=== PATIENT | female | born 1930 | race Caucasian/White ===

== ENCOUNTER 2018-06-26 11:23 | Observation (INO) ==
--- NOTE | 2018-06-26 12:17 | Emergency Department Note ---
Disposition Clinical Impression: Left bundle branch block (LBBB) on electrocardiogram CHF exacerbation Qualifiers: Heart failure type: combined systolic and diastolic Qualified Code(s): I50.43 - Acute on chronic combined systolic (congestive) and diastolic (congestive) heart failure Disposition: Admitted As Inpatient Condition: Fair Time of Disposition: 16:33 General Adult HPI - General Chief complaint: ED Abdominal Pain Stated complaint: Abdominal Pain Time Seen by Provider: 06/26/18 11:30 Source: patient, family, EMS Limitations: no limitations Nursing Notes Reviewed: Yes Vital Signs Reviewed: Yes - History of Present Illness HPI Narrative: Patient is an 87-year-old female presenting for lower extrude a swelling as well as nausea. Patient has an history of CHF, diabetes mellitus type 2. The patient has had progressive shortness of breath for the past 2 weeks, diagnosed with a pneumonia approximately one week ago, had been placed on antibiotics at that time as well as she believes a steroid without change of symptoms. She is also had a cough with little production, no fevers or chills at home. She states no change in symptoms following antibiotic use. States that her symptoms are worse when laying flat. No exertional symptoms. Patient also states she has had progressive lower extremity swelling. Patient denies chest pain. Starting 4 days ago, patient also started to develop nausea with mid abdominal pain described as a intermittent pain worse also when lying flat. No vomiting. She does have constant diarrhea, however is on metformin and this is unchanged. No hematochezia or melena. No fevers or chills. Patient has had workup approximately one week ago with elevated BNP, he was supposed to read evaluate this this week, however this has not been done. Patient is a poor historian for medications as well as medical history, her family is at bedside, and they also are unaware of what medicine she is taking at home. Pain Scale: 0 - Related Data Home Medications Medication Instructions Recorded Confirmed ALPRAZolam [Xanax 0.25 MG Tablet] 0.125 mg PO BID 06/26/18 06/26/18 Acetaminophen [Tylenol] 650 mg PO Q4H PRN 06/26/18 06/26/18 Allopurinol [Zyloprim 100 MG] 200 mg PO DAILY PRN 06/26/18 06/26/18 Aspirin [Adult Aspirin Regimen] 81 mg PO DAILY 06/26/18 06/26/18 Calcium Carbonate/Vitamin D3 2 tab PO DAILY 06/26/18 06/26/18 [Calcium 600-Vit D3 200 Tablet] Cholecalciferol (Vitamin D3) 1,000 unit PO DAILY 06/26/18 06/26/18 [Vitamin D] Escitalopram [Lexapro] 10 mg PO DAILY 06/26/18 06/26/18 Ipratropium/Albuterol Sulfate 3 ml IH Q6H PRN 06/26/18 06/26/18 [Iprat-Albut 0.5-3(2.5) mg/3 ml] Levothyroxine Sodium [Euthyrox] 88 mcg PO DAILY 06/26/18 06/26/18 Mag Hydrox/Aluminum Hyd/Simeth 15 ml PO Q4H PRN 06/26/18 06/26/18 [Gnp Antacid Liquid] Melatonin [Melatin] 3 mg PO HS 06/26/18 06/26/18 Meloxicam [Mobic] 7.5 mg PO Q12H PRN 06/26/18 06/26/18 Menthol [Biofreeze] 1 appl TP Q8H PRN 06/26/18 06/26/18 Menthol/Zinc Oxide [Calmoseptine 1 appl TP PRN PRN 06/26/18 06/26/18 Ointment Packet] Polyethylene Glycol 3350 17 gm PO PRN PRN 06/26/18 06/26/18 [Natura-Lax] Potassium Gluconate 80 mg PO DAILY 06/26/18 06/26/18 RX: Glimepiride [Amaryl] 8 mg PO DAILY 06/26/18 06/26/18 RX: Loratadine [Claritin] 10 mg PO DAILY 06/26/18 06/26/18 RX: Metformin HCl 1,000 mg PO BID 06/26/18 06/26/18 RX: Non-Formulary Medication 10 ml PO Q4H PRN 06/26/18 06/26/18 RX: Spironolactone 12.5 mg PO DAILY 06/26/18 06/26/18 RX: Trazodone HCl 50 mg PO Q22H PRN 06/26/18 06/26/18 Saliva Stimulant [Biotene 15 ml PO PRN PRN MDD 5XD 06/26/18 06/26/18 Moisturizing Rinse] Allergies Allergy/AdvReac Type Severity Reaction Status Date / Time azithromycin Allergy See Verified 06/26/18 11:31 Comments Sulfa (Sulfonamide Allergy See Verified 06/26/18 11:31 Antibiotics) Comments Review of Systems: In addition to that documented in the HPI above, the additional ROS was obtained: General: Denies fever. Denies chills. Denies weight loss. Denies behavioral change. Eyes: Denies visual changes. ENT: Denies nasal congestion. Denies sore throat. Denies hearing change. Cardio: Denies chest pain. Denies palpitations. Respiratory: Confirms cough. Confirms shortness of breath. Denies wheezing. GI: Confirms nausea, Denies vomiting, and confirms diarrhea. Denies hematochezia denies melena. Confirms abdominal pain. : Denies dysuria, hematuria, or urinary retention MSK: Denies back pain. Denies joint swelling. Neuro: Denies slurred speech. Denies numbness or tingling. Denies focal weakness. Denies headache. Denies loss of consciousness. Psych: Denies mood changes. All systems ED: reviewed and negative except as stated. Review of Systems: As Per HPI Past Medical History - Past Medical History Medical history: Reports: diabetes, hyperlipidemia, thyroid disease, other Psychiatric history: Reports: anxiety, depression - Social History Smoking Status: Never smoker Smokeless Tobacco Status: No Alcohol use: Reports: none Drug use: Reports: none Physical Exam - General Limitations: no limitations General appearance: alert - Head Head exam: atraumatic, normocephalic, normal inspection - Eye Eye exam: Present: normal appearance, PERRL, EOMI - ENT ENT exam: normal exam, normal oropharynx, mucous membranes moist - Neck Neck exam: Present: normal inspection, full ROM, trachea midline - Chest Chest inspection: Present: normal inspection, symmetric chest wall rise - Respiratory Respiratory exam: Present: prolonged expiratory phase, other (Decreased breath sounds throughout, with a few crackles to the left lower base) - Cardiovascular Cardiovascular exam: Present: normal rhythm, tachycardia - Abdominal Exam Abdominal exam: Present: soft, tenderness (Minimal to moderate tenderness to moderate palpation to the midepigastric region, without guarding or rebound). Absent: distention, guarding, rebound, rigidity - Extremities Exam Extremities exam: Present: normal inspection, full ROM, pedal edema (2+ pitting edema to the bilateral lower extremities, up to the knees, with SULY hose in pl griselda). Absent: tenderness - Expanded Lower Extremity Exam Neurovascular/Tendon exam: Absent: motor deficit, sensory deficit, tendon deficit - Back Exam Back exam: Present: normal inspection, full ROM. Absent: tenderness - Neurological Exam Neurological exam: Present: alert, oriented X3 - Psychiatric Psychiatric exam: Present: normal affect, normal mood - Skin Skin exam: Present: warm, dry, intact, normal color Course Vital Signs Temperature 98.4 F 06/26/18 11:31 Pulse Rate 111 06/26/18 11:31 Respiratory Rate 20 06/26/18 11:31 Blood Pressure 145/86 06/26/18 11:31 O2 Sat by Pulse Oximetry 95 06/26/18 11:31 Temperature 98.4 F 06/26/18 11:31 Pulse Rate 111 06/26/18 11:31 Respiratory Rate 20 06/26/18 11:31 Blood Pressure 145/86 06/26/18 11:31 O2 Sat by Pulse Oximetry 95 06/26/18 11:31 Oxygen Delivery Oxygen Delivery Room Air Medical Decision Making - [facility] Narrative Medical decision making narrative: Patient is an 87-year-old female presenting with shortness of breath and lower leg swelling. Patient also complaint he has some nausea. On arrival, patient is in no acute distress satting at 96% on room air, she does have some crackles to the left base with overall decreased breath sounds. She has some midepigastric abdominal pain. Lower leg swelling with 2+ pitting edema. CBC and BMP are relatively unremarkable. Troponin is within normal limits. BNP is significantly elevated as well as chest x-ray showing some pulmonary edema. This is suggestive of fluid overload given her clinical concerns with shortness of breath as well as lower leg swelling. This suggests the patient is an acute CHF. CT of the abdomen and pelvis was performed which shows concern for cystitis, patient started with Rocephin. Urinalysis was performed which shows no sign of infection, however she has been sent for urine culture. CT of the abdomen and pelvis also showed bilateral pleural effusion, with concern for atelectasis versus pneumonia. Patient was given Lasix 40 mg IV. Patient is remained stable here in the ER. EKG was performed which shows sinus tachycardia with suggestion of new left bundle branch block. No old EKG was able to be obtained. This suggested this is a new left bundle branch block, however the patient is without chest pain. We will not anticoagulated at this point in time as patient is stable, continues denies chest pain with negative troponin. Did discuss these findings with the patient as well as her family in the room, patient be admitted this point in time. Patient agrees with disposition. - Medical Records Medical records reviewed: Yes I reviewed the patient's medical records. - Lab Data Lab results reviewed: Yes I reviewed the patient's lab results. Result diagrams: 06/26/18 12:07 06/26/18 12:07 Lab Results 06/26/18 06/26/18 06/26/18 Range/Units 12:07 12:07 12:07 WBC 4.6 (4.3-11.1) K/mcL RBC 4.19 (3.82-4.97) M/mcL Hgb 11.6 (11.5-15.4) g/dL Hct 35.8 (35.3-44.9) % MCV 85.4 (83.0-100.0) fL MCH 27.7 L (28.0-33.3) pg MCHC 32.4 (31.6-35.5) g/dL RDW 14.0 (11.5-14.5) % Plt Count 201 (140-400) K/mcL MPV 10.5 (9.4-12.4) fL Immature Gran % 0.2 (0-4) % Seg Neutrophils % 71.9 % Lymphocytes % 18.7 % Monocytes % 8.3 % Eosinophils % 0.7 % Basophils % 0.2 % Neutrophils # 3.3 (1.6-8.9) K/mcL Lymphocytes # 0.9 (0.6-4.6) K/mcL Monocytes # 0.4 (0.0-1.3) K/mcL Eosinophils # 0.0 (0.0-0.6) K/mcL Basophils # 0.0 (0.0-0.2) K/mcL PT 12.9 H (9.4-12.1) Seconds INR 1.1 Sodium 130 L (136-145) mEq/L Potassium 4.4 (3.5-5.1) mEq/L Chloride 98 (98-107) mEq/L Carbon Dioxide 23 (23-29) mEq/L BUN 16 (8-23) mg/dL Creatinine 0.96 (0.60-1.20) mg/dL Est GFR ( Amer) > 60 (> 60) Est GFR (Non-Af Amer) 55 L (> 60) BUN/Creatinine Ratio 17 (6-26) Glucose 288 H (70-105) mg/dL Calculated Osmolality 282 (280-300) Lactic Acid (0.5-2.2) mmol/L Calcium 10.0 (8.6-10.3) mg/dL Total Bilirubin 0.6 (0.3-1.0) mg/dL Direct Bilirubin 0.1 (0.0-0.2) mg/dL Indirect Bilirubin 0.5 (0.0-1.2) mg/dL AST 24 (13-39) Units/L ALT 25 (7-52) Units/L Alkaline Phosphatase 78 (34-104) Units/L Troponin I 0.03 (< 0.04) ng/mL B-Natriuretic Peptide (Less than 100) pg/mL Serum Total Protein 6.8 (6.4-8.9) g/dL Albumin 3.8 (3.5-5.7) g/dL Globulin 3.0 (2.4-3.5) g/dL Albumin/Globulin Ratio 1.3 (1.1-2.2) Lipase 29 (11-82) Units/L Urine Color (Yellow) Urine Clarity (Clear) Urine pH (5.0-8.0) pH Units Ur Specific Thomas (1.010-1.025) Urine Protein (Neg-Trace) mg/dL Urine Glucose (UA) (Normal) mg/dL Urine Ketones (Negative) mg/dL Urine Blood (Negative) Urine Nitrite (Negative) Urine Bilirubin (Negative) Urine Urobilinogen (Normal) mg/dL Ur Leukocyte Esterase (Negative) Urine Microscopic RBC (0-3) per hpf Urine Microscopic WBC (0-3) per hpf Ur Squamous Epith Cells (None-Few) per lpf Urine Bacteria (None-Few) per hpf Hyaline Casts (None-Few) per lpf 06/26/18 06/26/18 06/26/18 Range/Units 12:07 12:07 14:20 WBC (4.3-11.1) K/mcL RBC (3.82-4.97) M/mcL Hgb (11.5-15.4) g/dL Hct (35.3-44.9) % MCV (83.0-100.0) fL MCH (28.0-33.3) pg MCHC (31.6-35.5) g/dL RDW (11.5-14.5) % Plt Count (140-400) K/mcL MPV (9.4-12.4) fL Immature Gran % (0-4) % Seg Neutrophils % % Lymphocytes % % Monocytes % % Eosinophils % % Basophils % % Neutrophils # (1.6-8.9) K/mcL Lymphocytes # (0.6-4.6) K/mcL Monocytes # (0.0-1.3) K/mcL Eosinophils # (0.0-0.6) K/mcL Basophils # (0.0-0.2) K/mcL PT (9.4-12.1) Seconds INR Sodium (136-145) mEq/L Potassium (3.5-5.1) mEq/L Chloride (98-107) mEq/L Carbon Dioxide (23-29) mEq/L BUN (8-23) mg/dL Creatinine (0.60-1.20) mg/dL Est GFR ( Amer) (> 60) Est GFR (Non-Af Amer) (> 60) BUN/Creatinine Ratio (6-26) Glucose (70-105) mg/dL Calculated Osmolality (280-300) Lactic Acid 1.7 (0.5-2.2) mmol/L Calcium (8.6-10.3) mg/dL Total Bilirubin (0.3-1.0) mg/dL Direct Bilirubin (0.0-0.2) mg/dL Indirect Bilirubin (0.0-1.2) mg/dL AST (13-39) Units/L ALT (7-52) Units/L Alkaline Phosphatase (34-104) Units/L Troponin I (< 0.04) ng/mL B-Natriuretic Peptide 2996 H (Less than 100) pg/mL Serum Total Protein (6.4-8.9) g/dL Albumin (3.5-5.7) g/dL Globulin (2.4-3.5) g/dL Albumin/Globulin Ratio (1.1-2.2) Lipase (11-82) Units/L Urine Color Dark Yellow (Yellow) Urine Clarity Cloudy A (Clear) Urine pH 5.5 (5.0-8.0) pH Units Ur Specific Thomas > 1.030 H (1.010-1.025) Urine Protein >=300 H (Neg-Trace) mg/dL Urine Glucose (UA) 500 H (Normal) mg/dL Urine Ketones 15 H (Negative) mg/dL Urine Blood Trace H (Negative) Urine Nitrite Negative (Negative) Urine Bilirubin Negative (Negative) Urine Urobilinogen Normal (Normal) mg/dL Ur Leukocyte Esterase Negative (Negative) Urine Microscopic RBC 0-3 (0-3) per hpf Urine Microscopic WBC 5-15 H (0-3) per hpf Ur Squamous Epith Cells Many H (None-Few) per lpf Urine Bacteria Many H (None-Few) per hpf Hyaline Casts Few (None-Few) per lpf - Radiology Data Radiology results reviewed: Yes I reviewed the patient's radiology results. Chest X-Ray 06/26/18 12:00 IMPRESSION: 1. Trace bilateral pleural effusions, right greater than left. Mild bibasilar atelectasis. Mild pulmonary vascular congestion. Mild cardiomegaly. Findings favored to represent mild CHF related changes. 2. Moderate to severe elevation of the right hemidiaphragm. D/ / 06/26/2018 13:47:04 Waldo Chin MD / lorraine Interpreting Provider: Waldo Chin MD Abdomen/Pelvis CT 06/26/18 15:20 IMPRESSION: Moderate right pleural effusion. Small left pleural effusion. Associated bibasilar lung opacities may represent atelectasis versus pneumonia. Bladder wall thickening with a small amount of air and surrounding inflammatory changes likely related to infection. No bowel obstruction. Complex right adrenal mass. Compare with any prior outside studies. D/ / 06/26/2018 16:14:55 Agustín Clark MD / lorraine Interpreting Provider: Agustín Clark MD - EKG Data EKG #1 EKG attestation: Yes I reviewed and interpreted this EKG. EKG results narrative: EKG performed at 1147 with ventricular rate of 110, regular rhythm, left axis deviation with left bundle branch block, without significant ST elevation, T-wa ve inversion in lead 1, aVL. No old EKG for comparison. Rogers - Rogers Situation: Demographics, MOA Background: Presenting Complaint, Relevant PMH, Meds, & Allergies Assessment: Vital Signs, Course and respsone to treatment, Exam Concerns, Patient/Family Expectation, Pertinant Lab Results, Outstanding Labs Recommendation: Barrier(s) to disposition, Recommendation based on pending studies, treatments, or consults Rogers Report Given to: Dr. Jose Mccloud Repor Time: 16:45 (accepted) Attestation Statement - Attestation Attestation: Resident Attestation: I examined this patient and my medical decision making was reviewed with the Resident Physician. I agree with the documented findings, disposition and treatment plan as described except to the extent set forth below. We independently had [id number] contact with the patient. Overall patient presenting to the emergency department for evaluation of multiple complaints and convoluting cough, shortness of breath, abdominal pain. Patient underwent further evaluation with blood work as well as x-ray and CT. Patient's blood work concerning for elevated BNP and congestive heart failure. Patient states no specific significant history. It is always been assumed. Patient will require further evaluation for this. Patient also went under CT scan imaging to rule out abdominal pathology. Her abdomen was soft with just mild generalized tenderness. No rebound or guarding. No specific findings. Patient will be admitted for further evaluation. Patient was also found to have a left bundle branch block. No previous EKGs for comparison. Troponin negative. Patient did have Rales on exam but was not in respiratory distress. CT scan did show fluid that was not initially seen on x-ray consistent with pleural effusion and congestive heart failure.
[2018-06-26 12:18] LABS: Basophils % 0.2 %; Eosinophils % 0.7 %; Hematocrit 35.8 % (35.3-44.9); Hemoglobin 11.6 g/dL (11.5-15.4); Immature Granulocytes % 0.2 % (0-4); Lymphocytes # 0.9 K/mcL (0.6-4.6); Lymphocytes % 18.7 %; Mean Corpuscular HGB Conc 32.4 g/dL (31.6-35.5); Mean Corpuscular Hemoglobin 27.7 pg (28.0-33.3); Mean Corpuscular Volume 85.4 fL (83.0-100.0); Mean Platelet Volume 10.5 fL (9.4-12.4); Monocytes # 0.4 K/mcL (0.0-1.3); Monocytes % 8.3 %; Neutrophils # 3.3 K/mcL (1.6-8.9); Platelet Count 201 K/mcL (140-400); Red Blood Count 4.19 M/mcL (3.82-4.97); Segmented Neutrophils % 71.9 %
[2018-06-26 12:32] LABS: INR 1.1; Prothrombin Time 12.9 Seconds (9.4-12.1)
[2018-06-26 12:44] LABS: Alanine Aminotransferase 25 Units/L (7-52); Albumin 3.8 g/dL (3.5-5.7); Albumin/Globulin Ratio 1.3 (1.1-2.2); Alkaline Phosphatase 78 Units/L (34-104); Aspartate Amino Transferase 24 Units/L (13-39); BUN/Creatinine Ratio 17 (6-26); Bilirubin,Direct 0.1 mg/dL (0.0-0.2); Bilirubin,Indirect 0.5 mg/dL (0.0-1.2); Bilirubin,Total 0.6 mg/dL (0.3-1.0); Blood Urea Nitrogen 16 mg/dL (8-23); Carbon Dioxide 23 mEq/L (23-29); Chloride 98 mEq/L (98-107); Glucose 288 mg/dL (70-105); Lipase 29 Units/L (11-82); Osmolality,Calculated 282 (280-300); Potassium 4.4 mEq/L (3.5-5.1); Sodium 130 mEq/L (136-145); Total Protein 6.8 g/dL (6.4-8.9); Troponin I 0.03 ng/mL (< 0.04); eGFR For Non-African Americans 55 (> 60)
[2018-06-26] MEDS ORDERED: Furosemide 40 MG/4 ML VIAL IVP ONE (13:48)
[2018-06-26] MEDS ORDERED: Isovue-370 500 ML BOTTLE IVP ONE (13:55)
[2018-06-26 14:37] LABS: Bilirubin,Urine Negative (Negative); Blood,Urine Trace (Negative); Clarity,Urine Cloudy (Clear); Color,Urine Dark Yellow (Yellow); Glucose,Urine (UA) 500 mg/dL (Normal); Ketones,Urine 15 mg/dL (Negative); Leukocyte Esterase,Urine Negative (Negative); Nitrite,Urine Negative (Negative); PH,Urine 5.5 pH Units (5.0-8.0); Protein,Urine >=300 mg/dL (Neg-Trace); Specific Gravity,Urine > 1.030 (1.010-1.025); Urobilinogen,Urine Normal (Normal)
[2018-06-26 14:39] LABS: Bacteria,Urine Many per hpf (None-Few); Hyaline Casts,Urine Few per lpf (None-Few); Squamous Epithelial Cell,Urine Many per lpf (None-Few)
[2018-06-26 15:00] LABS: RBC,Urine 0-3 per hpf (0-3)
[2018-06-26] MEDS ORDERED: cefTRIAXone 1,000 MG in Water for inj. (sterile) 20 ML 10 ML IVP ONE (16:22)
[2018-06-26] MEDS ORDERED: Naloxone 0.4 MG/ML INJ IVP PRN (16:48)
[2018-06-26] MEDS ORDERED: D5% in Water 1,000 ML IVC PRN (16:51)
[2018-06-26] MEDS ORDERED: *HR* Dextrose 50 % in Water (Syg) 50 ML SYRINGE IVP PRN (16:51)
[2018-06-26] MEDS ORDERED: Dextrose Gel 15 GM/37.5 ML TUBE PO PRN ×2 (16:51)
[2018-06-26 17:20] LABS: Chol/HDL Ratio 3.2 (0-4.9); Cholesterol 148 mg/dL (< 200); HDL Cholesterol 46 mg/dL (40-59); LDL Cholesterol,Calculated 81 mg/dL (0-99); Triglycerides 105 mg/dL (< 150)
--- NOTE | 2018-06-26 17:25 | Internal Med History&Physical ---
Date of Encounter: 06/26/18 Time of Encounter: 17:18 Internal Medicine - H&P: HPI Chief complaint: shortness of breath and abdominal discomfort Admitted From: Home Plans for Post Hospital Care: Home History of present illness: Ms. Hernandez is a 87 year old female PMH of DM, HTN and hypothyroidism. Patient presented to the ED due to shortness of breath. Patient reports she has been feeling short of breath for the past month but since she has feeling getting short of breath with minimal exertion. She also reports increase abdominal girth, and edema of the lower extremities b/l. Stated that her clothing feel tighter for about a month now. Report she has been sleeping on a chair in a sitting position because she has not been able to sleep flat due to shortness of breath for about 1 month now. Denies chest pain, nausea or vomiting. But reports generalized abdominal discomfort of one day duration associated with poor PO intake. Reports she has loose stool/diarrhea, about 2-3 BM a day, but stated she is taking a pill to help her move her bowel. Past Med Surg Social Fam HX - Past Medical History Medical history: diabetes, hyperlipidemia, thyroid disease, other Psychiatric history: anxiety, depression - Social History Smoking Status: Never smoker Smokeless Tobacco Status: No Alcohol use: none Drug use: none Internal Medicine - H&P: Meds ALPRAZolam [Xanax 0.25 MG Tablet] 0.125 mg PO BID 06/26/18 [History] Acetaminophen [Tylenol] 650 mg PO Q4H PRN 06/26/18 [History] Allopurinol [Zyloprim 100 MG] 200 mg PO DAILY PRN 06/26/18 [History] Aspirin [Adult Aspirin Regimen] 81 mg PO DAILY 06/26/18 [History] Calcium Carbonate/Vitamin D3 [Calcium 600-Vit D3 200 Tablet] 2 tab PO DAILY 06/26/18 [History] Cholecalciferol (Vitamin D3) [Vitamin D] 1,000 unit PO DAILY 06/26/18 [History] Escitalopram [Lexapro] 10 mg PO DAILY 06/26/18 [History] Glimepiride [Amaryl] 8 mg PO DAILY 06/26/18 [History] Ipratropium/Albuterol Sulfate [Iprat-Albut 0.5-3(2.5) mg/3 ml] 3 ml IH Q6H PRN 06/26/18 [History] Levothyroxine Sodium [Euthyrox] 88 mcg PO DAILY 06/26/18 [History] Loratadine [Claritin] 10 mg PO DAILY 06/26/18 [History] Mag Hydrox/Aluminum Hyd/Simeth [Gnp Antacid Liquid] 15 ml PO Q4H PRN 06/26/18 [History] Melatonin [Melatin] 3 mg PO HS 06/26/18 [History] Meloxicam [Mobic] 7.5 mg PO Q12H PRN 06/26/18 [History] Menthol [Biofreeze] 1 appl TP Q8H PRN 06/26/18 [History] Menthol/Zinc Oxide [Calmoseptine Ointment Packet] 1 appl TP PRN PRN 06/26/18 [History] Metformin HCl 1,000 mg PO BID 06/26/18 [History] Non-Formulary Medication 10 ml PO Q4H PRN 06/26/18 [History] Polyethylene Glycol 3350 [Natura-Lax] 17 gm PO PRN PRN 06/26/18 [History] Potassium Gluconate 80 mg PO DAILY 06/26/18 [History] Saliva Stimulant [Biotene Moisturizing Rinse] 15 ml PO PRN PRN MDD 5XD 06/26/18 [History] Spironolactone 12.5 mg PO DAILY 06/26/18 [History] Trazodone HCl 50 mg PO Q22H PRN 06/26/18 [History] Allergy/AdvReac Type Severity Reaction Status Date / Time azithromycin Allergy See Verified 06/26/18 11:31 Comments Sulfa (Sulfonamide Allergy See Verified 06/26/18 11:31 Antibiotics) Comments All Systems PM: A 10-system review of systems was performed and is negative for pertinent findings except as documented above in the HPI. - Constitutional Constitutional: weakness, no chills, no fever(s), no lethargy - EENT Nose, mouth and throat: no dry mouth - Cardiovascular Cardiovascular ROS IM: dyspnea, dyspnea on exertion, edema, orthopnea, paroxysmal nocturnal dyspnea, no chest pain, no diaphoresis, no irregular heart rhythm, no lightheadedness, no palpitations, no syncope - Respiratory Respiratory: no cough, no dyspnea on exertion, no wheezing, no chest congestion, no change in phlegm color - Gastrointestinal Gastrointestinal: abdominal pain, loose stools, no diarrhea, no nausea, no vomiting - Genitourinary Genitourinary: no hematuria, no nocturia - Musculoskeletal Musculoskeletal ROS IM: no arthralgias, no muscle weakness - Integumentary Integumentary IM: no erythema - Neurological Neurological ROS: no headache(s) - Psychiatric Psychiatric: no anxiety, no confusion, no irritability - Endocrine Endocrine IM: no polydipsia, no polyphagia, no polyuria - Hematologic/Lymphatic Hematologic/Lymphatic: no lymphadenopathy - Allergic/Immunologic Allergic/Immunologic: no GI upset with certain foods Additional comments: Rest of a 10 review of system negative - Constitutional Vitals: Temp Pulse Resp BP Pulse Ox 98.4 F 111 20 145/86 95 06/26/18 11:31 06/26/18 11:31 06/26/18 11:31 06/26/18 11:31 06/26/18 11:31 Exam: Vitals: Reviewed General: Alert and oriented x4. In mild distress due to shortness of breath Skin: stage II ulcer anterior left alexandra HEENT: EOM, pupils equal, round and reactive. Cardiovascular: RRR, normal S1 & S2, no rubs, murmurs or gallops. JVD unable to assess due to short neck Lungs: b/l crackles at both bases, no rales or wheezing. Abdomen:Obese, soft, non-tender, no rigidity. Extremities: 2-3+ edema in the lower extr b/l. Neurological: Normal cognition and motor skills. Rest of the physical exam is non contributory Internal Med - H&P Results - Labs CBC & Chem 7: 06/26/18 12:07 06/26/18 12:07 Labs: Short CBC 06/26/18 Range/Units 12:07 WBC 4.6 (4.3-11.1) K/mcL Hgb 11.6 (11.5-15.4) g/dL Hct 35.8 (35.3-44.9) % Plt Count 201 (140-400) K/mcL Neutrophils # 3.3 (1.6-8.9) K/mcL BMP 06/26/18 12:07 Sodium 130 L Potassium 4.4 Chloride 98 Carbon Dioxide 23 BUN 16 Creatinine 0.96 Glucose 288 H Calcium 10.0 Cardiac Enzymes 06/26/18 Range/Units 12:07 Troponin I 0.03 (< 0.04) ng/mL Liver Function 06/26/18 Range/Units 12:07 Total Bilirubin 0.6 (0.3-1.0) mg/dL Direct Bilirubin 0.1 (0.0-0.2) mg/dL AST 24 (13-39) Units/L ALT 25 (7-52) Units/L Alkaline Phosphatase 78 (34-104) Units/L Albumin 3.8 (3.5-5.7) g/dL Urine 06/26/18 Range/Units 14:20 Urine Color Dark Yellow (Yellow) Urine Clarity Cloudy A (Clear) Urine pH 5.5 (5.0-8.0) pH Units Ur Specific [place] > 1.030 H (1.010-1.025) Urine Protein >=300 H (Neg-Trace) mg/dL Urine Glucose (UA) 500 H (Normal) mg/dL - Impressions ITS Impressions Chest X-Ray 06/26/18 12:00 IMPRESSION: 1. Trace bilateral pleural effusions, right greater than left. Mild bibasilar atelectasis. Mild pulmonary vascular congestion. Mild cardiomegaly. Findings favored to represent mild CHF related changes. 2. Moderate to severe elevation of the right hemidiaphragm. D/ / 06/26/2018 13:47:04 Waldo Chin MD / [facility] Interpreting Provider: Waldo Chin MD Abdomen/Pelvis CT 06/26/18 15:20 IMPRESSION: Moderate right pleural effusion. Small left pleural effusion. Associated bibasilar lung opacities may represent atelectasis versus pneumonia. Bladder wall thickening with a small amount of air and surrounding inflammatory changes likely related to infection. No bowel obstruction. Complex right adrenal mass. Compare with any prior outside studies. D/ / 06/26/2018 16:14:55 Agustín Clark MD / [facility] Interpreting Provider: Agustín Clark MD - Diagnostic Studies Chest x-ray Status: image reviewed by me (no infiltrate. pulmonary vascular congestion.) - Assessment and Plan (1) CHF exacerbation Current Visit: Yes Status: Acute Assessment and plan: patient presenting with worsening dyspnea and edema. Plan: started on IV diruresis with furosemide 40mg/IV BID strict intake and output water restriction to 1.5 litters a day. daily weight low dose beta-phil added serial trops TTE ordered Qualifiers: Heart failure type: combined systolic and diastolic Qualified Code(s): I50.43 - Acute on chronic combined systolic (congestive) and diastolic (congestive) heart failure (2) Hypothyroidism Current Visit: Yes Status: Chronic Assessment and plan: patient on levothyroxine 88 mcg/po daily tsh reflect to t4 ordered. Qualifiers: Hypothyroidism type: unspecified Qualified Code(s): E03.9 - Hypothyroidism, unspecified (3) Diabetes Current Visit: Yes Status: Chronic Assessment and plan: patient started on short and long acting insulin, plus lispro low dose sliding scale. carb control diet. 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 will monitor and adjust accordingly Qualifiers: Hypertension type: unspecified Qualified Code(s): I10 - Essential (primary) hypertension (5) DVT prophylaxis Current Visit: Yes Status: Chronic Assessment and plan: heparin subq (6) Left bundle branch block (LBBB) on electrocardiogram Current Visit: Yes Status: Acute (7) Depression with anxiety Current Visit: Yes Status: Chronic Assessment and plan: patient is on escitalopram and alprazolam. will resume home medications - Time Spent With Patient Total time spent is greater than 50% in coordination of care (as documented) at patient's floor/unit and/or counseling patient: Greater than 35 minutes (45)
[2018-06-26 17:33] LABS: Thyroid Stimulating Hormone 3.443 mcIU/mL (0.340-5.600)
[2018-06-26 17:54] LABS: Estimated Average Glucose 217 mg/dl; Hemoglobin A1C 9.2 %
--- NOTE | 2018-06-26 20:52 | Event Note ---
Date of Encounter: 06/26/18 Time of Encounter: 20:50 Notified by nurse of patient having full code status in [employer] and DNRCCA form on chart. Discussed with patient at bedside, remains alert and oriented. Verbalizes understanding of DNRCCA and requests status be changed in [employer]. Code status changed.
[2018-06-26] MEDS: Furosemide 40 MG/4 ML VIAL IVP SCH (21:05)
[2018-06-26] MEDS: Insulin LISPRO 300 UNITS/3 ML VIAL SQ SCH (21:05)
[2018-06-26] MEDS: *HR* Heparin 5,000 UNIT/ML VIAL SQ SCH (23:46)
[2018-06-26] MEDS: Melatonin 3 MG TABLET PO SCH (23:46)
[2018-06-26] MEDS: Insulin DETEMIR 100 UNIT/ML X5UNITS SQ SCH (23:55)
[2018-06-27] MEDS: *HR* Heparin 5,000 UNIT/ML VIAL SQ SCH ×3 (05:35→21:08)
[2018-06-27] MEDS: Insulin LISPRO 300 UNITS/3 ML VIAL SQ SCH ×7 (08:07→16:57)
[2018-06-27] MEDS: Furosemide 40 MG/4 ML VIAL IVP SCH ×2 (08:07→16:44)
[2018-06-27] MEDS: Aspirin Enteric Coated 81 MG Tablet PO SCH (08:07)
[2018-06-27] MEDS: Insulin DETEMIR 100 UNIT/ML X5UNITS SQ SCH (08:10)
[2018-06-27 08:12] LABS: Basophils % 0.5 %; Eosinophils # 0.1 K/mcL (0.0-0.6); Eosinophils % 1.6 %; Hematocrit 34.6 % (35.3-44.9); Immature Granulocytes % 0.2 % (0-4); Lymphocytes # 0.8 K/mcL (0.6-4.6); Lymphocytes % 18.1 %; Mean Corpuscular HGB Conc 31.8 g/dL (31.6-35.5); Mean Corpuscular Hemoglobin 27.3 pg (28.0-33.3); Mean Corpuscular Volume 85.9 fL (83.0-100.0); Mean Platelet Volume 10.8 fL (9.4-12.4); Monocytes # 0.5 K/mcL (0.0-1.3); Monocytes % 10.5 %; Platelet Count 203 K/mcL (140-400); Red Blood Count 4.03 M/mcL (3.82-4.97); Red Cell Distribution Width 14.1 % (11.5-14.5); Segmented Neutrophils % 69.1 %
[2018-06-27 08:31] LABS: BUN/Creatinine Ratio 18 (6-26); Blood Urea Nitrogen 17 mg/dL (8-23); Calcium 9.5 mg/dL (8.6-10.3); Carbon Dioxide 28 mEq/L (23-29); Chloride 96 mEq/L (98-107); Glucose 215 mg/dL (70-105); Magnesium 1.5 mg/dL (1.6-2.6); Osmolality,Calculated 284 (280-300); Phosphorous 4.1 mg/dL (2.7-4.5); Potassium 4.3 mEq/L (3.5-5.1); Sodium 133 mEq/L (136-145); eGFR For Non-African Americans 55 (> 60)
--- NOTE | 2018-06-27 12:14 | Internal Med Progress Note ---
Hospitalist Progress Note - Encounter Date of Encounter: 06/27/18 Time of Encounter: 12:12 - Subjective Interval History: I have seen and evaluated the patient at bedside. Reports that her breathing is improving. Denies abdominal discomfort pain. Denies chest pain. - Exam Vitals: Temp Pulse Resp BP Pulse Ox 97.3 F L 81 20 103/64 92 06/27/18 10:23 06/27/18 10:23 06/27/18 10:23 06/27/18 10:23 06/27/18 10:23 Exam: Vitals: Reviewed General: Alert and oriented x4. No distress Cardiovascular: RRR, normal S1 & S2, no rubs, murmurs or gallops. Lungs: crackles at both left lung base, no rales or wheezing. Abdomen: Obese, soft, non-tender, no rigidity. NABS in all 4 quadrants Extremities: 2+ edema in the lower extr b/l. Neurological: Normal cognition. Rest of the physical exam is non contributo - Assessment and Plan (1) CHF exacerbation Current Visit: Yes Status: Acute Assessment and Plan: Crackles at the left lower base. Total fluid balance negative at 200 MLS. Continue fluid restriction to 1.5 L a day, daily weights and strict intake and output. On furosemide 40 mg IV twice a day. On a beta phil. (2) Hypothyroidism Current Visit: Yes Status: Chronic Assessment and Plan: Patient is on levothyroxine 88 mcg/PO daily (3) Diabetes Current Visit: Yes Status: Chronic Assessment and Plan: Blood sugars suboptimally controlled. Increase Levemir to 15 units BID and lispro to 5 units ac, plus continue low dose sliding scale (4) Hypertension Current Visit: Yes Status: Chronic Assessment and Plan: Blood pressure is well controlled on furosemide and carvedilol. (5) Left bundle branch block (LBBB) on electrocardiogram Current Visit: Yes Status: Chronic (6) Depression with anxiety Current Visit: Yes Status: Chronic Assessment and Plan: Patient is on alprazolam 0125mg/PO BID PRN. continue escitalopram (7) Hypomagnesemia Current Visit: Yes Status: Acute Assessment and Plan: electrolyte replaced DVT Prophylaxis: On heparin subcutaneous. - Summary of Assessment and Plan Summary of Assessment and Plan: Patient to remain in the hospital due to CHF exacerbation, on IV diuretics. - Time Spent with Patient Total time spent is greater than 50% in coordination of care (as documented) at patient's floor/unit and/or counseling patient: Greater than 35 minutes (40) Plan of Care Discussed with: patient (and the nurse) Internal Medicine: Result - Labs CBC & Chem 7: 06/27/18 06:59 06/27/18 06:59 Labs: Short CBC 06/26/18 06/27/18 Range/Units 12:07 06:59 WBC 4.6 4.4 (4.3-11.1) K/mcL Hgb 11.6 11.0 L (11.5-15.4) g/dL Hct 35.8 34.6 L (35.3-44.9) % Plt Count 201 203 (140-400) K/mcL Neutrophils # 3.3 3.0 (1.6-8.9) K/mcL BMP 06/26/18 06/27/18 12:07 06:59 Sodium 130 L 133 L Potassium 4.4 4.3 Chloride 98 96 L Carbon Dioxide 23 28 BUN 16 17 Creatinine 0.96 0.96 Glucose 288 H 215 H Calcium 10.0 9.5 Cardiac Enzymes 06/26/18 06/26/18 06/26/18 Range/Units 12:07 17:42 22:31 Troponin I 0.03 0.03 0.04 H* (< 0.04) ng/mL 06/27/18 Range/Units 06:59 Troponin I 0.03 (< 0.04) ng/mL Liver Function 06/26/18 Range/Units 12:07 Total Bilirubin 0.6 (0.3-1.0) mg/dL Direct Bilirubin 0.1 (0.0-0.2) mg/dL AST 24 (13-39) Units/L ALT 25 (7-52) Units/L Alkaline Phosphatase 78 (34-104) Units/L Albumin 3.8 (3.5-5.7) g/dL Urine 06/26/18 Range/Units 14:20 Urine Color Dark Yellow (Yellow) Urine Clarity Cloudy A (Clear) Urine pH 5.5 (5.0-8.0) pH Units Ur Specific [place] > 1.030 H (1.010-1.025) Urine Protein >=300 H (Neg-Trace) mg/dL Urine Glucose (UA) 500 H (Normal) mg/dL - ABG Interpretation ABG results: PT/INR, D-dimer PT 12.9 Seconds (9.4-12.1) H 06/26/18 12:07 - Impressions Impressions Chest X-Ray 06/26/18 12:00 IMPRESSION: 1. Trace bilateral pleural effusions, right greater than left. Mild bibasilar atelectasis. Mild pulmonary vascular congestion. Mild cardiomegaly. Findings favored to represent mild CHF related changes. 2. Moderate to severe elevation of the right hemidiaphragm. D/ / 06/26/2018 13:47:04 Waldo Chin MD / [facility] Interpreting Provider: Waldo Chin MD Abdomen/Pelvis CT 06/26/18 15:20 IMPRESSION: Moderate right pleural effusion. Small left pleural effusion. Associated bibasilar lung opacities may represent atelectasis versus pneumonia. Bladder wall thickening with a small amount of air and surrounding inflammatory changes likely related to infection. No bowel obstruction. Complex right adrenal mass. Compare with any prior outside studies. D/ / 06/26/2018 16:14:55 Agustín Clark MD / [place] Interpreting Provider: Agustín Clark MD Consult Discharge Plan - Plan Referrals: Josh Michael MD [Primary Care Provider] - (1) CHF exacerbation Qualifiers: Heart failure type: combined systolic and diastolic Qualified Code(s): I50.43 - Acute on chronic combined systolic (congestive) and diastolic (congestive) heart failure (2) Hypothyroidism Qualifiers: Hypothyroidism type: unspecified Qualified Code(s): E03.9 - Hypothyroidism, unspecified (3) Diabetes Qualifiers: Diabetes mellitus type: type 2 Diabetes mellitus [employer] insulin use: unspecified [employer] insulin use status Diabetes mellitus complication status: with unspecified complications Qualified Code(s): E11.8 - Type 2 diabetes mellitus with unspecified complications (4) Hypertension Qualifiers: Hypertension type: unspecified Qualified Code(s): I10 - Essential (primary) hypertension
[2018-06-27] MEDS ORDERED: Insulin DETEMIR 100 UNIT/ML X5UNITS SQ SCH (21:00)
[2018-06-27] MEDS: Melatonin 3 MG TABLET PO SCH (21:08)
[2018-06-28] MEDS: ALPRAZolam 0.25 MG TABLET PO PRN ×2 (00:42→21:07)
[2018-06-28] MEDS: *HR* Heparin 5,000 UNIT/ML VIAL SQ SCH ×3 (05:49→20:59)
[2018-06-28] MEDS ORDERED: Menthol 9.1 MG LOZENGE PO PRN (05:59)
[2018-06-28] MEDS: Insulin LISPRO 300 UNITS/3 ML VIAL SQ SCH ×4 (07:27→15:58)
[2018-06-28] MEDS: Furosemide 40 MG/4 ML VIAL IVP SCH ×2 (07:58→16:45)
[2018-06-28] MEDS: Aspirin Enteric Coated 81 MG Tablet PO SCH (07:58)
[2018-06-28] MEDS ORDERED: Insulin LISPRO 300 UNITS/3 ML VIAL SQ SCH (08:00)
[2018-06-28 08:30] LABS: BUN/Creatinine Ratio 20 (6-26); Blood Urea Nitrogen 19 mg/dL (8-23); Calcium 9.3 mg/dL (8.6-10.3); Carbon Dioxide 30 mEq/L (23-29); Chloride 97 mEq/L (98-107); Glucose 85 mg/dL (70-105); Magnesium 1.7 mg/dL (1.6-2.6); Osmolality,Calculated 286 (280-300); Phosphorous 4.6 mg/dL (2.7-4.5); Potassium 3.7 mEq/L (3.5-5.1); Sodium 137 mEq/L (136-145); eGFR For Non-African Americans 56 (> 60)
[2018-06-28] MEDS ORDERED: Insulin DETEMIR 100 UNIT/ML X5UNITS SQ SCH ×3 (09:00→21:00)
--- NOTE | 2018-06-28 10:14 | Internal Med Progress Note ---
Hospitalist Progress Note - Encounter Date of Encounter: 06/28/18 Time of Encounter: 10:12 - Subjective Interval History: I have seen and evaluated the patient at bedside. Patient reports improvement on her breathing and abdominal discomfort. she states today is the first time she was able to lay flat in months. reports cough, productive with yellow/clear sputum. - Exam Vitals: Temp Pulse Resp BP Pulse Ox 97.8 F 86 16 131/75 95 06/28/18 06:50 06/28/18 06:50 06/28/18 06:50 06/28/18 06:50 06/28/18 06:50 Exam: Vitals: Reviewed General: Alert and oriented x4. No distress Cardiovascular: RRR, normal S1 & S2, no rubs, murmurs or gallops. Lungs: CTA b/l, no crackles, rales or wheezing. Abdomen: Obese, soft, non-tender, no rigidity. NABS in all 4 quadrants Extremities: 2+ edema in the lower extr b/l. Neurological: Normal cognition. Rest of the physical exam is non contributo - Assessment and Plan (1) CHF exacerbation Current Visit: Yes Status: Acute Assessment and Plan: HFrEF estimated E.F of 30-35%. Patient improving clinically, able to lay flat. reports improvement of the abdominal discomfort. total negative balance of 1.5 litters Plan continue fluids restrictive strategies to 1.5 litters a day. on furosemide 40mg/IV BID and a bb will add low dose lisinopril 5mg/PO daily daily weight and strict intake and output. sputum culture ordered, patient with a Hx of pneumonia 6 months ago. (2) Hypothyroidism Current Visit: Yes Status: Chronic Assessment and Plan: on levothyroxine 88 mcg/PO daily (3) Diabetes Current Visit: Yes Status: Chronic Assessment and Plan: patient with an episode of hypoglycemia overnight. decrease levemir to 10 units HS discontinue Lispro 5 units scheduled continue Lispro low dose sliding scale ac on a carb controlled diet encourage PO intake. (4) Hypertension Current Visit: Yes Status: Chronic Assessment and Plan: BP has been well controlled on furosemide and carvedilol. will continue to monitor and will adjust the medications accordingly. (5) Left bundle branch block (LBBB) on electrocardiogram Current Visit: Yes Status: Chronic (6) Depression with anxiety Current Visit: Yes Status: Chronic Assessment and Plan: patient is on alprazolam and escitalopram (7) Hypomagnesemia Current Visit: Yes Status: Resolved DVT Prophylaxis: Patient is on heparin subq - Summary of Assessment and Plan Summary of Assessment and Plan: Patient to continue in the hospital for IV diuresis. Potential discharge to [facility] - Time Spent with Patient Total time spent is greater than 50% in coordination of care (as documented) at patient's floor/unit and/or counseling patient: Greater than 35 minutes (40) Plan of Care Discussed with: patient (and the nurse.) Internal Medicine: Result - Labs CBC & Chem 7: 06/27/18 06:59 06/28/18 07:53 Labs: BMP 06/28/18 07:53 Sodium 137 Potassium 3.7 Chloride 97 L Carbon Dioxide 30 H BUN 19 Creatinine 0.94 Glucose 85 Calcium 9.3 - ABG Interpretation ABG results: PT/INR, D-dimer PT 12.9 Seconds (9.4-12.1) H 06/26/18 12:07 - Impressions Impressions Echocardiogram 06/26/18 16:53 Impressions: LVEF 30-35%. Mild concentric left ventricular hypertrophy. Indeterminate diastolic function. Atypical septal motion consistent with bundle branch block. Mildly dilated right ventricle with mild right ventricular hypokinesis. Mild-moderate pulmonic regurgitation. Mild tricuspid regurgitation. No evidence of pulmonary hypertension. Left Ventricular Wall Motion: Rest Echo Findings The apex, apical inferior, mid inferior, basal inferior, apical anterior, mid anterior, basal anterior, apical septal, mid inferior septal, basal inferior septal, apical lateral, mid anterior lateral, basal anterior lateral, mid anterior septal, mid inferior lateral, basal anterior septal and basal inferior lateral mccray were hypokinetic. Findings: Study Quality * Technically adequate exam. ECG Findings * Sinus rhythm with BBB. Left Ventricle * LVEF 30-35%. * Mild concentric left ventricular hypertrophy. * Mildly dilated left ventricle. * Indeterminate diastolic function. * Atypical septal motion consistent with bundle branch block. Right Ventricle * Mild right ventricular hypokinesis. * Mildly dilated right ventricle. Left Atrium * Mildly dilated left atrium. Right Atrium * Normal right atrial size. Interatrial Septum * No evidence of PFO by color Doppler. Aortic Valve * Trileaflet aortic valve. * Moderately sclerotic aortic valve leaflets. * Trace aortic regurgitation. * No aortic stenosis. Mitral Valve * Mild mitral regurgitation. * Moderate mitral annular calcification * No mitral stenosis. Tricuspid Valve * Mild tricuspid regurgitation. * No tricuspid stenosis. * No evidence of pulmonary hypertension. * Normal tricuspid valve structure. Pulmonic Valve * Mild-moderate pulmonic regurgitation. Aorta * Normally sized aortic root. Pericardium * The pericardium appears normal. * Appearance is consistent with a {type} mitral valve replacement. Function appears {function{. IVC * The IVC is dilated. Consult Discharge Plan - Plan Referrals: Josh Michael MD [Primary Care Provider] - (1) CHF exacerbation Qualifiers: Heart failure type: combined systolic and diastolic Qualified Code(s): I50.43 - Acute on chronic combined systolic (congestive) and diastolic (congestive) heart failure (2) Hypothyroidism Qualifiers: Hypothyroidism type: unspecified Qualified Code(s): E03.9 - Hypothyroidism, unspecified (3) Diabetes Qualifiers: Diabetes mellitus type: type 2 Diabetes mellitus [facility] insulin use: unspecified [facility] insulin use status Diabetes mellitus complication status: with unspecified complications Qualified Code(s): E11.8 - Type 2 diabetes mellitus with unspecified complications (4) Hypertension Qualifiers: Hypertension type: unspecified Qualified Code(s): I10 - Essential (primary) hypertension
[2018-06-29 04:42] LABS: Basophils % 0.2 %; Eosinophils # 0.2 K/mcL (0.0-0.6); Eosinophils % 2.7 %; Hematocrit 35.7 % (35.3-44.9); Hemoglobin 11.4 g/dL (11.5-15.4); Immature Granulocytes % 0.5 % (0-4); Lymphocytes # 1.4 K/mcL (0.6-4.6); Mean Corpuscular HGB Conc 31.9 g/dL (31.6-35.5); Mean Corpuscular Hemoglobin 27.5 pg (28.0-33.3); Mean Platelet Volume 10.5 fL (9.4-12.4); Monocytes # 0.5 K/mcL (0.0-1.3); Monocytes % 8.3 %; Neutrophils # 3.8 K/mcL (1.6-8.9); Platelet Count 223 K/mcL (140-400); Red Blood Count 4.15 M/mcL (3.82-4.97); Red Cell Distribution Width 14.2 % (11.5-14.5); Segmented Neutrophils % 65.3 %
[2018-06-29 05:02] LABS: BUN/Creatinine Ratio 20 (6-26); Blood Urea Nitrogen 17 mg/dL (8-23); Carbon Dioxide 31 mEq/L (23-29); Chloride 97 mEq/L (98-107); Glucose 154 mg/dL (70-105); Magnesium 1.6 mg/dL (1.6-2.6); Osmolality,Calculated 287 (280-300); Potassium 3.4 mEq/L (3.5-5.1); Sodium 136 mEq/L (136-145); eGFR For Non-African Americans > 60 (> 60)
[2018-06-29] MEDS: *HR* Heparin 5,000 UNIT/ML VIAL SQ SCH (06:53)
[2018-06-29] MEDS: Insulin LISPRO 300 UNITS/3 ML VIAL SQ SCH ×2 (07:02→11:26)
[2018-06-29] MEDS: Aspirin Enteric Coated 81 MG Tablet PO SCH (07:25)
[2018-06-29] MEDS: Furosemide 40 MG/4 ML VIAL IVP SCH (07:25)
--- NOTE | 2018-06-29 08:28 | Discharge Summary ---
- NOTES TO OUTPATIENT PROVIDER Notes to Outpatient Provider: Follow up with your extract puller within a week of hospital discharge. Orders not resulted at time of discharge: Pending orders 06/27/18 16:46 UA w. reflex microscopic [Urinalysis reflex Microscopic] [URIN] Stat 06/28/18 10:14 Sputum Culture [Culture,Sputum with Gram Stain] [RM] Stat Date of Encounter: 06/29/18 Time of Encounter: 08:22 - Discharge Diagnosis (1) CHF exacerbation Priority: Primary Status: Resolved Qualifiers: Heart failure type: combined systolic and diastolic Qualified Code(s): I50.43 - Acute on chronic combined systolic (congestive) and diastolic (congestive) heart failure (2) Hypothyroidism Priority: Secondary Status: Chronic Qualifiers: Hypothyroidism type: unspecified Qualified Code(s): E03.9 - Hypothyroidism, unspecified (3) Diabetes Priority: Secondary Status: Chronic Qualifiers: Diabetes mellitus type: type 2 Diabetes mellitus fci insulin use: unspecified fci insulin use status Diabetes mellitus complication status: with unspecified complications Qualified Code(s): E11.8 - Type 2 diabetes mellitus with unspecified complications (4) Hypertension Priority: Secondary Status: Chronic Qualifiers: Hypertension type: unspecified Qualified Code(s): I10 - Essential (primary) hypertension (5) Left bundle branch block (LBBB) on electrocardiogram Priority: Secondary Status: Chronic (6) Depression with anxiety Priority: Secondary Status: Chronic (7) Hypomagnesemia Priority: Secondary Status: Resolved (8) Hypokalemia Priority: Secondary Status: Acute Hospital course: Ms. Hernandez is a 87 year old female PMH of DM, HTN and hypothyroidism. Patient presented to the ED due to shortness of breath. chest ray: Trace bilateral pleural effusions, right greater than left. Mild bibasilar atelectasis. Mild pulmonary vascular congestion. Mild cardiomegaly. Findings favored to represent mild CHF related changes. Patient admitted to the hospital due to HFrEF exacerbation. Patient managed with Iv diuretics, 2 litters of fluids removed, weight on admission 84.3 Kg on discharge 78.9 Kg. Patient acute symptoms of presentations resolved. She is hemodynamically stable to be discharged. - Time Spent with Patient Total time spent providing and/or coordinating discharge services: Time spent: Greater than 30 minutes (35) - Discharge Medications Prescriptions: New Carvedilol [Coreg] 3.125 mg PO BIDWM 30 Days #60 tablet Furosemide [Lasix] 40 mg PO BID 30 Days #60 tablet Lisinopril [Zestril] 5 mg PO DAILY 30 Days #30 tablet Continue Allopurinol [Zyloprim 100 MG] 200 mg PO DAILY PRN PRN Reason: GOUT ALPRAZolam [Xanax 0.25 MG Tablet] 0.125 mg PO BID Aspirin [Adult Aspirin Regimen] 81 mg PO DAILY Calcium Carbonate/Vitamin D3 [Calcium 600-Vit D3 200 Tablet] 2 tab PO DAILY Escitalopram [Lexapro] 10 mg PO DAILY Glimepiride [Amaryl] 8 mg PO DAILY Ipratropium/Albuterol Sulfate [Iprat-Albut 0.5-3(2.5) mg/3 ml] 3 ml IH Q6H PRN PRN Reason: Shortness Of Breath/COUGH Levothyroxine Sodium [Euthyrox] 88 mcg PO DAILY Loratadine [Claritin] 10 mg PO DAILY Mag Hydrox/Aluminum Hyd/Simeth [Gnp Antacid Liquid] 15 ml PO Q4H PRN PRN Reason: Indigestion Melatonin [Melatin] 3 mg PO HS Meloxicam [Mobic] 7.5 mg PO Q12H PRN PRN Reason: Pain Menthol [Biofreeze] 1 appl TP Q8H PRN PRN Reason: Pain Menthol/Zinc Oxide [Calmoseptine Ointment Packet] 1 appl TP PRN PRN PRN Reason: PREVENTATIVE SKIN IRRITATION Metformin HCl 1,000 mg PO BID Non-Formulary Medication 10 ml PO Q4H PRN PRN Reason: COUGH/CONGESTION Polyethylene Glycol 3350 [Natura-Lax] 17 gm PO PRN PRN PRN Reason: Constipation Potassium Gluconate 80 mg PO DAILY Saliva Stimulant [Biotene Moisturizing Rinse] 15 ml PO PRN PRN MDD 5XD PRN Reason: Dry Mouth Trazodone HCl 50 mg PO Q22H PRN PRN Reason: Insomnia Acetaminophen [Tylenol] 650 mg PO Q4H PRN PRN Reason: PAIN/FEVER Cholecalciferol (Vitamin D3) [Vitamin D3] 1,000 unit PO DAILY Discontinued Spironolactone 12.5 mg PO DAILY Home Medications: ALPRAZolam [Xanax 0.25 MG Tablet] 0.125 mg PO BID 06/26/18 [History] Acetaminophen [Tylenol] 650 mg PO Q4H PRN 06/26/18 [History] Allopurinol [Zyloprim 100 MG] 200 mg PO DAILY PRN 06/26/18 [History] Aspirin [Adult Aspirin Regimen] 81 mg PO DAILY 06/26/18 [History] Calcium Carbonate/Vitamin D3 [Calcium 600-Vit D3 200 Tablet] 2 tab PO DAILY 06/26/18 [History] Cholecalciferol (Vitamin D3) [Vitamin D3] 1,000 unit PO DAILY 06/26/18 [History] Escitalopram [Lexapro] 10 mg PO DAILY 06/26/18 [History] Glimepiride [Amaryl] 8 mg PO DAILY 06/26/18 [History] Ipratropium/Albuterol Sulfate [Iprat-Albut 0.5-3(2.5) mg/3 ml] 3 ml IH Q6H PRN 06/26/18 [History] Levothyroxine Sodium [Euthyrox] 88 mcg PO DAILY 06/26/18 [History] Loratadine [Claritin] 10 mg PO DAILY 06/26/18 [History] Mag Hydrox/Aluminum Hyd/Simeth [Gnp Antacid Liquid] 15 ml PO Q4H PRN 06/26/18 [History] Melatonin [Melatin] 3 mg PO HS 06/26/18 [History] Meloxicam [Mobic] 7.5 mg PO Q12H PRN 06/26/18 [History] Menthol [Biofreeze] 1 appl TP Q8H PRN 06/26/18 [History] Menthol/Zinc Oxide [Calmoseptine Ointment Packet] 1 appl TP PRN PRN 06/26/18 [History] Metformin HCl 1,000 mg PO BID 06/26/18 [History] Non-Formulary Medication 10 ml PO Q4H PRN 06/26/18 [History] Polyethylene Glycol 3350 [Natura-Lax] 17 gm PO PRN PRN 06/26/18 [History] Potassium Gluconate 80 mg PO DAILY 06/26/18 [History] Saliva Stimulant [Biotene Moisturizing Rinse] 15 ml PO PRN PRN MDD 5XD 06/26/18 [History] Trazodone HCl 50 mg PO Q22H PRN 06/26/18 [History] Carvedilol [Coreg] 3.125 mg PO BIDWM 30 Days #60 tablet 06/29/18 [Rx] Furosemide [Lasix] 40 mg PO BID 30 Days #60 tablet 06/29/18 [Rx] Lisinopril [Zestril] 5 mg PO DAILY 30 Days #30 tablet 06/29/18 [Rx] Allergies/Adverse Reactions: Allergy/AdvReac Type Severity Reaction Status Date / Time azithromycin Allergy See Verified 06/26/18 11:31 Comments Sulfa (Sulfonamide Allergy See Verified 06/26/18 11:31 Antibiotics) Comments Date of admission: 06/26/18 18:35 Primary care physician: Josh Michael MD Consults: 06/28/18 09:24 Consult to Nurse Navigator [CONS] Routine Comment: chf Consult to Production Proofreader [CONS] Routine Reason for SW Consult: from [facility] [place] - Constitutional Vitals: Temp Pulse Resp BP Pulse Ox 98.4 F 80 18 133/77 98 06/29/18 06:47 06/29/18 06:47 06/29/18 06:47 06/29/18 06:47 06/29/18 07:30 Exam: Vitals: Reviewed General: Alert and oriented x4. No distress Cardiovascular: RRR, normal S1 & S2, no rubs, murmurs or gallops. Lungs: CTA b/l, no crackles, rales or wheezing. Abdomen: Obese, soft, non-tender, no rigidity. NABS in all 4 quadrants Extremities: 2+ edema in the lower extr b/l. Neurological: Normal cognition. Rest of the physical exam is non contributory - Patient Status Disposition: Transfer LTC Condition: Good Functional capacity at discharge: uses cane/walker Overall status at discharge: patient is back to baseline - Discharge Instructions Follow Up With: Josh Michael MD [Primary Care Provider] - - Diet and Activity Activity: as per physical therapy Diet: diabetic diet, low salt diet
--- NOTE | 2018-06-29 08:34 | Physician Discharge Referral ---
ExtendedCare Referral Info Transfer To: detention - Diagnosis (1) CHF exacerbation Priority: Primary Status: Resolved (2) Hypothyroidism Priority: Secondary Status: Chronic (3) Diabetes Priority: Secondary Status: Chronic (4) Hypertension Priority: Secondary Status: Chronic (5) Left bundle branch block (LBBB) on electrocardiogram Priority: Secondary Status: Chronic (6) Depression with anxiety Priority: Secondary Status: Chronic (7) Hypomagnesemia Priority: Secondary Status: Resolved (8) Hypokalemia Priority: Secondary Status: Acute Prognosis: Fair Aware of Diagnosis: Patient, Family Aware of Prognosis: Patient, Family - Transfer Medications Prescriptions: Carvedilol [Coreg] 3.125 mg PO BIDWM 30 Days #60 tablet Furosemide [Lasix] 40 mg PO BID 30 Days #60 tablet Lisinopril [Zestril] 5 mg PO DAILY 30 Days #30 tablet Home Medications: ALPRAZolam [Xanax 0.25 MG Tablet] 0.125 mg PO BID 06/26/18 [History] Acetaminophen [Tylenol] 650 mg PO Q4H PRN 06/26/18 [History] Allopurinol [Zyloprim 100 MG] 200 mg PO DAILY PRN 06/26/18 [History] Aspirin [Adult Aspirin Regimen] 81 mg PO DAILY 06/26/18 [History] Calcium Carbonate/Vitamin D3 [Calcium 600-Vit D3 200 Tablet] 2 tab PO DAILY 06/26/18 [History] Cholecalciferol (Vitamin D3) [Vitamin D3] 1,000 unit PO DAILY 06/26/18 [History] Escitalopram [Lexapro] 10 mg PO DAILY 06/26/18 [History] Glimepiride [Amaryl] 8 mg PO DAILY 06/26/18 [History] Ipratropium/Albuterol Sulfate [Iprat-Albut 0.5-3(2.5) mg/3 ml] 3 ml IH Q6H PRN 06/26/18 [History] Levothyroxine Sodium [Euthyrox] 88 mcg PO DAILY 06/26/18 [History] Loratadine [Claritin] 10 mg PO DAILY 06/26/18 [History] Mag Hydrox/Aluminum Hyd/Simeth [Gnp Antacid Liquid] 15 ml PO Q4H PRN 06/26/18 [History] Melatonin [Melatin] 3 mg PO HS 06/26/18 [History] Meloxicam [Mobic] 7.5 mg PO Q12H PRN 06/26/18 [History] Menthol [Biofreeze] 1 appl TP Q8H PRN 06/26/18 [History] Menthol/Zinc Oxide [Calmoseptine Ointment Packet] 1 appl TP PRN PRN 06/26/18 [History] Metformin HCl 1,000 mg PO BID 06/26/18 [History] Non-Formulary Medication 10 ml PO Q4H PRN 06/26/18 [History] Polyethylene Glycol 3350 [Natura-Lax] 17 gm PO PRN PRN 06/26/18 [History] Potassium Gluconate 80 mg PO DAILY 06/26/18 [History] Saliva Stimulant [Biotene Moisturizing Rinse] 15 ml PO PRN PRN MDD 5XD 06/26/18 [History] Trazodone HCl 50 mg PO Q22H PRN 06/26/18 [History] Carvedilol [Coreg] 3.125 mg PO BIDWM 30 Days #60 tablet 06/29/18 [Rx] Furosemide [Lasix] 40 mg PO BID 30 Days #60 tablet 06/29/18 [Rx] Lisinopril [Zestril] 5 mg PO DAILY 30 Days #30 tablet 06/29/18 [Rx] Allergies/Adverse Reactions: Allergy/AdvReac Type Severity Reaction Status Date / Time azithromycin Allergy See Verified 06/26/18 11:31 Comments Sulfa (Sulfonamide Allergy See Verified 06/26/18 11:31 Antibiotics) Comments - Respiratory Orders None Smoking Cessation: Smoking cessation has been advised. For more information, call the [place] Tobacco Quit Line at 7-622-LWLX-NOW. - Advance Directives Code Status: DNR-Comfort Care - Mobility Orders Ambulate - Rehabiliation Orders Rehab Potential: Fair Rehab Orders: ROM Exercises, Evaluation for Physical Therapy, Evaluation for Occupational Therapy - Diet Orders Regular CERTIFICATION: I certify that the transfer of the above named patient to an Extended Care Facility is necessary for the continuing treatment of the diagnosis listed. The above information is true and accurate reflection of patient's current condition. Confidential - Redisclosure prohibited without a patient's written consent.
[2018-06-29 11:03] VITALS: BP 109/67
--- NOTE | 2018-06-30 17:26 | Electrocardiograph Report ---
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
== END 2018-06-29 13:07 ==
LOC: 2ANU 11:23 → EMEROOARM 11:23 → SUATTDRO 18:35 → 2ANU 19:08
PROVIDERS: ADMIT Internal Medicine; ATTEND Internal Medicine